=== PATIENT | male | born 1940 | race Caucasian/White ===

== ENCOUNTER 2020-08-02 15:48 | Inpatient (IN) | payer MEDICARE, OTHER ==
[~2020-08-02] VITALS: Ht 177.8 cm; Wt 71.3 kg
[2020-08-02] MEDS ORDERED: SODIUM CHLORIDE 0.9% 1,000 ML IV ONE (16:30)
[2020-08-02] MEDS ORDERED: levoFLOXacin 500MG 100 ML IV ONE (16:30)
[2020-08-02] MEDS ORDERED: ACETAMINOPHEN 500 MG TAB PO ONE ×2 (16:30→20:00)
[2020-08-02 16:55] LABS: Basophils # (auto) 0.1 10 ^3/uL (0-0.2); Basophils % (auto) 0.7 % (0.0-2.0); Eosinophils # (auto) 0.2 10 ^3/uL (0-0.8); Eosinophils % (auto) 1.1 % (0.0-7.0); Hematocrit 46.6 % (41.0-53.0); Hemoglobin 15.6 g/dL (13.5-17.5); Lymphocytes % (auto) 7.5 % (10.0-50.0); Mean Corpuscular Hemoglobin 31.6 pg (28.0-32.0); Mean Corpuscular Hgb Conc. 33.6 g/dL (32.0-36.0); Mean Corpuscular Volume 93.9 fL (80.0-100.0); Monocytes # (auto) 0.5 10 ^3/uL (0-1.3); Neutrophils # (auto) 11.6 10 ^3/uL (1.6-8.6); Neutrophils % (auto) 86.7 % (37.0-80.0); Platelet Count (auto) 203 10^3/uL (140-450); Red Blood Cells 4.96 10^6/uL (4.5-5.90); Red Cell Distribution Width 13.2 % (11.8-14.3); White Blood Cell 13.4 10^3/uL (4.4-10.8)
[2020-08-02 17:11] LABS: Alanine Aminotransferase 40 U/L (16-61); Albumin 3.6 g/dL (3.4-5.0); Anion Gap 7 (5-15); Aspartate Aminotransferase 26 U/L (15-37); BUN/Creatinine Ratio 18.7; Blood Urea Nitrogen 20 mg/dL (7-18); Carbon Dioxide 26 mmol/L (21-32); Chloride 110 mmol/L (98-107); GFR African American 86 mL/min; GFR Non-African American 71 mL/min; Glucose 143 mg/dL (74-106); Potassium 4.2 mmol/L (3.5-5.1); Sodium 143 mmol/L (136-145)
[2020-08-02 17:15] LABS: Alkaline Phosphatase 68 U/L (45-117); Bilirubin, Total 0.7 mg/dL (0.2-1.0); Total Protein 7.5 g/dL (6.4-8.2)
[2020-08-02 17:16] LABS: Lactic Acid w/Reflex 2.8 mmol/L (0.4-2.0)
[2020-08-02 17:23] LABS: INR 1.03 (0.9-1.15); Partial Thromboplastin Time 23.2 sec (23.0-31.2)
[2020-08-02] MEDS ORDERED: LIDOCAINE 2% JELLY 11ml (GLYDO) ONE (18:20)
[2020-08-02] MEDS ORDERED: LIDOCAINE 2% JELLY 11ml (GLYDO) UR ONE (18:30)
[2020-08-02] MEDS ORDERED: IBUPROFEN 600 MG TAB PO ONE (18:30)
[2020-08-02] MEDS ORDERED: SODIUM CHLORIDE 0.9% 500 ML IV ONE (20:00)
[2020-08-02 22:22] LABS: Urine Bacteria NONE SEEN /hpf (None Seen); Urine Blood 3+ /uL (Negative); Urine Mucus FEW (None Seen); Urine Specific Gravity 1.033 (1.001-1.035); Urine WBC 10 /hpf (0 - 3)
[2020-08-02] MEDS ORDERED: NITROGLYCERIN 0.4 MG SL TAB SL PRN (22:45)
[2020-08-02] MEDS ORDERED: ACETAMINOPHEN 325 MG TAB PO PRN (22:45)
[2020-08-02] MEDS ORDERED: MORPHINE SULF INJ 2 MG/ML SYRINGE 1ML IV PRN (22:45)
[2020-08-02] MEDS ORDERED: ONDANSETRON HCL 4 MG/2 ML VIAL IV PRN (22:45)
[2020-08-02] MEDS ORDERED: VANCOMYCIN PER PHARMACY 0 MG IV SCH (22:45)
[2020-08-02] MEDS: SODIUM CHLORIDE 0.9% 1,000 ML IV SCH (22:55)
[2020-08-02] MEDS ORDERED: VANCOMYCIN 1GM/250ML 250 ML IV ONE (23:00)
[2020-08-02 23:43] LABS: Lactic Acid w/Reflex 4.4 mmol/L (0.4-2.0)
[2020-08-03] VITALS (8 sets, daily range): BP systolic 103–145; BP diastolic 55–79
[2020-08-03] MEDS ORDERED: SENN1TAB14 PO (02:53)
[2020-08-03] MEDS ORDERED: IBUP400T22 PO (02:53)
[2020-08-03] MEDS ORDERED: SERT50TA19 PO (02:53)
[2020-08-03] MEDS ORDERED: TRAM50TA2 PO (02:53)
[2020-08-03] MEDS ORDERED: GABA300C10 PO (02:53)
[2020-08-03 07:07] LABS: Basophils # (auto) 0.1 10 ^3/uL (0-0.2); Basophils % (auto) 0.5 % (0.0-2.0); Eosinophils # (auto) 0.1 10 ^3/uL (0-0.8); Eosinophils % (auto) 0.9 % (0.0-7.0); Hematocrit 40.1 % (41.0-53.0); Lymphocytes # (auto) 2.1 10 ^3/uL (0.4-5.4); Mean Corpuscular Hemoglobin 31.2 pg (28.0-32.0); Mean Corpuscular Hgb Conc. 32.5 g/dL (32.0-36.0); Neutrophils # (auto) 12.7 10 ^3/uL (1.6-8.6); Neutrophils % (auto) 79.6 % (37.0-80.0); Nucleated Red Blood Cells % 0.1 %; Platelet Count (auto) 185 10^3/uL (140-450); Red Blood Cells 4.18 10^6/uL (4.5-5.90); Red Cell Distribution Width 13.7 % (11.8-14.3)
[2020-08-03 07:09] LABS: Calcium 8.2 mg/dL (8.5-10.1); Potassium 4.3 mmol/L (3.5-5.1)
[2020-08-03 07:14] LABS: Albumin 2.6 g/dL (3.4-5.0); BUN/Creatinine Ratio 22.4; Total Protein 6.2 g/dL (6.4-8.2)
[2020-08-03 07:17] LABS: Lactic Acid w/Reflex 3.4 mmol/L (0.4-2.0)
[2020-08-03] MEDS: levoFLOXacin 500MG 100 ML IV SCH (09:29)
[2020-08-03] MEDS: MULTIPLE VITAMIN TAB PO SCH (09:30)
[2020-08-03] MEDS: FAMOTIDINE (10MG/ML) 2ML VL IV SCH ×2 (09:30→21:43)
[2020-08-03] MEDS: ZINC SULFATE 220mg CAP or TAB PO SCH (09:30)
[2020-08-03] MEDS: ENOXAPARIN SOD 40 MG/0.4 ML SYRINGE SC SCH (09:30)
[2020-08-03] MEDS: HYDROcodone-ACET 5/325MG TAB PO PRN ×3 (09:41→19:22)
[2020-08-03] MEDS: VANCOMYCIN 1GM/250ML 250 ML IV SCH (11:14)
[2020-08-03] MEDS: ASCORBIC ACID 500 MG TAB PO SCH ×2 (11:27→21:43)
[2020-08-03] MEDS: SODIUM CHLORIDE 0.9% 1,000 ML IV SCH (15:25)
[2020-08-03] MEDS: PHENAZOPYRIDINE HCL 100 MG TAB PO SCH (21:43)
[2020-08-04] MEDS: HYDROcodone-ACET 5/325MG TAB PO PRN (00:11)
[2020-08-04] MEDS: VANCOMYCIN 1GM/250ML 250 ML IV SCH ×2 (00:45→14:49)
[2020-08-04 05:00] VITALS: BP 114/61
[2020-08-04 08:17] LABS: Basophils # (auto) 0.1 10 ^3/uL (0-0.2); Basophils % (auto) 0.6 % (0.0-2.0); Eosinophils # (auto) 0.2 10 ^3/uL (0-0.8); Eosinophils % (auto) 2.1 % (0.0-7.0); Hematocrit 39.4 % (41.0-53.0); Hemoglobin 12.9 g/dL (13.5-17.5); Lymphocytes # (auto) 1.7 10 ^3/uL (0.4-5.4); Lymphocytes % (auto) 14.7 % (10.0-50.0); Mean Corpuscular Hemoglobin 31.2 pg (28.0-32.0); Mean Corpuscular Hgb Conc. 32.7 g/dL (32.0-36.0); Mean Corpuscular Volume 95.2 fL (80.0-100.0); Monocytes # (auto) 0.9 10 ^3/uL (0-1.3); Monocytes % (auto) 7.5 % (0.0-12.0); Neutrophils # (auto) 8.8 10 ^3/uL (1.6-8.6); Neutrophils % (auto) 75.1 % (37.0-80.0); Nucleated Red Blood Cells % 0.1 %; Platelet Count (auto) 173 10^3/uL (140-450); Red Blood Cells 4.14 10^6/uL (4.5-5.90); Red Cell Distribution Width 13.7 % (11.8-14.3); White Blood Cell 11.7 10^3/uL (4.4-10.8)
[2020-08-04 08:18] LABS: Lactic Acid w/Reflex 3.4 mmol/L (0.4-2.0)
[2020-08-04 08:18] LABS: BUN/Creatinine Ratio 23.4; Calcium 8.7 mg/dL (8.5-10.1); Potassium 4.6 mmol/L (3.5-5.1)
[2020-08-04 08:29] VITALS: BP 125/72
[2020-08-04] MEDS: PHENAZOPYRIDINE HCL 100 MG TAB PO SCH ×3 (09:27→17:27)
[2020-08-04] MEDS: levoFLOXacin 500MG 100 ML IV SCH (09:28)
[2020-08-04] MEDS: ZINC SULFATE 220mg CAP or TAB PO SCH (09:28)
[2020-08-04] MEDS: FAMOTIDINE (10MG/ML) 2ML VL IV SCH ×2 (09:28→21:40)
[2020-08-04] MEDS: ENOXAPARIN SOD 40 MG/0.4 ML SYRINGE SC SCH (09:29)
[2020-08-04] MEDS: ASCORBIC ACID 500 MG TAB PO SCH ×2 (09:29→21:40)
[2020-08-04] MEDS: MULTIPLE VITAMIN TAB PO SCH (09:29)
[2020-08-04] MEDS ORDERED: IOHEXOL 300 MG/ML 100ML BOTTLE IJ ONE (11:25)
[2020-08-04 12:58] VITALS: BP 116/63
[2020-08-04] MEDS: SODIUM CHLORIDE 0.9% 1,000 ML IV SCH ×2 (13:16→21:41)
[2020-08-04 17:05] VITALS: BP 140/79
[2020-08-04 20:00] VITALS: BP 135/69
[2020-08-04 22:00] VITALS: BP 135/69
[2020-08-05 05:00] VITALS: BP 158/79
[2020-08-05 08:37] LABS: Basophils # (auto) 0.1 10 ^3/uL (0-0.2); Basophils % (auto) 0.9 % (0.0-2.0); Eosinophils # (auto) 0.3 10 ^3/uL (0-0.8); Eosinophils % (auto) 3.6 % (0.0-7.0); Hematocrit 38.7 % (41.0-53.0); Lymphocytes # (auto) 1.6 10 ^3/uL (0.4-5.4); Lymphocytes % (auto) 19.2 % (10.0-50.0); Mean Corpuscular Hemoglobin 31.5 pg (28.0-32.0); Mean Corpuscular Hgb Conc. 33.7 g/dL (32.0-36.0); Mean Corpuscular Volume 93.7 fL (80.0-100.0); Monocytes # (auto) 0.5 10 ^3/uL (0-1.3); Monocytes % (auto) 6.5 % (0.0-12.0); Neutrophils # (auto) 5.8 10 ^3/uL (1.6-8.6); Neutrophils % (auto) 69.8 % (37.0-80.0); Nucleated Red Blood Cells % 0.1 %; Platelet Count (auto) 211 10^3/uL (140-450); Red Blood Cells 4.13 10^6/uL (4.5-5.90); Red Cell Distribution Width 13.4 % (11.8-14.3); White Blood Cell 8.4 10^3/uL (4.4-10.8)
[2020-08-05] MEDS: PHENAZOPYRIDINE HCL 100 MG TAB PO SCH ×3 (08:41→17:41)
[2020-08-05 08:50] LABS: BUN/Creatinine Ratio 20.6; Calcium 8.5 mg/dL (8.5-10.1); Potassium 3.5 mmol/L (3.5-5.1)
[2020-08-05 09:00] VITALS: BP 154/71
[2020-08-05] MEDS ORDERED: VANCOMYCIN 1GM/250ML 250 ML IV SCH ×2 (09:00→12:00)
[2020-08-05] MEDS: ASCORBIC ACID 500 MG TAB PO SCH ×2 (09:08→21:52)
[2020-08-05] MEDS: ZINC SULFATE 220mg CAP or TAB PO SCH (09:08)
[2020-08-05] MEDS: MULTIPLE VITAMIN TAB PO SCH (09:08)
[2020-08-05] MEDS: FAMOTIDINE (10MG/ML) 2ML VL IV SCH ×2 (09:08→21:52)
[2020-08-05] MEDS: levoFLOXacin 500MG 100 ML IV SCH (09:08)
[2020-08-05] MEDS: ENOXAPARIN SOD 40 MG/0.4 ML SYRINGE SC SCH (09:09)
[2020-08-05] MEDS: HYDROcodone-ACET 5/325MG TAB PO PRN ×2 (09:09→20:17)
[2020-08-05] MEDS ORDERED: PIPERACILLIN-TAZOB 3.375GM 100 ML IV ONE (12:00)
[2020-08-05] MEDS ORDERED: CLINDAMYCIN 600MG IV 50 ML IV ONE (12:15)
[2020-08-05 13:00] VITALS: BP 121/67
[2020-08-05] MEDS ORDERED: PIPERACILLIN-TAZOB 3.375GM 100 ML IV SCH (14:00)
[2020-08-05 17:00] VITALS: BP 122/73
[2020-08-05] MEDS: MORPHINE SULF INJ 2 MG/ML SYRINGE 1ML IV PRN ×2 (17:25→21:52)
[2020-08-05] MEDS: SODIUM CHLORIDE 0.9% 1,000 ML IV SCH (17:26)
[2020-08-05] MEDS: CLINDAMYCIN 600MG IV 50 ML IV SCH (21:53)
[2020-08-05 22:00] VITALS: BP 138/88
[2020-08-06] MEDS: HYDROcodone-ACET 5/325MG TAB PO PRN (00:30)
[2020-08-06 05:00] VITALS: BP 127/76
[2020-08-06] MEDS: CLINDAMYCIN 600MG IV 50 ML IV SCH ×2 (05:23→13:40)
[2020-08-06 06:26] LABS: Basophils # (auto) 0.1 10 ^3/uL (0-0.2); Basophils % (auto) 0.9 % (0.0-2.0); Eosinophils # (auto) 0.5 10 ^3/uL (0-0.8); Eosinophils % (auto) 7.7 % (0.0-7.0); Hematocrit 38.5 % (41.0-53.0); Hemoglobin 13.2 g/dL (13.5-17.5); Lymphocytes # (auto) 1.6 10 ^3/uL (0.4-5.4); Lymphocytes % (auto) 23.8 % (10.0-50.0); Mean Corpuscular Hemoglobin 32.3 pg (28.0-32.0); Mean Corpuscular Hgb Conc. 34.2 g/dL (32.0-36.0); Mean Corpuscular Volume 94.3 fL (80.0-100.0); Monocytes # (auto) 0.6 10 ^3/uL (0-1.3); Monocytes % (auto) 9.2 % (0.0-12.0); Neutrophils # (auto) 3.9 10 ^3/uL (1.6-8.6); Neutrophils % (auto) 58.4 % (37.0-80.0); Nucleated Red Blood Cells % 0.1 %; Platelet Count (auto) 210 10^3/uL (140-450); Red Blood Cells 4.08 10^6/uL (4.5-5.90); Red Cell Distribution Width 13.5 % (11.8-14.3); White Blood Cell 6.7 10^3/uL (4.4-10.8)
[2020-08-06 06:45] LABS: BUN/Creatinine Ratio 16.3; Calcium 8.1 mg/dL (8.5-10.1); Potassium 3.6 mmol/L (3.5-5.1)
[2020-08-06] MEDS: MORPHINE SULF INJ 2 MG/ML SYRINGE 1ML IV PRN (08:19)
[2020-08-06] MEDS: FAMOTIDINE (10MG/ML) 2ML VL IV SCH (08:20)
[2020-08-06] MEDS: ENOXAPARIN SOD 40 MG/0.4 ML SYRINGE SC SCH (08:20)
[2020-08-06] MEDS: ZINC SULFATE 220mg CAP or TAB PO SCH (08:20)
[2020-08-06] MEDS: ASCORBIC ACID 500 MG TAB PO SCH (08:20)
[2020-08-06] MEDS: MULTIPLE VITAMIN TAB PO SCH (08:20)
[2020-08-06 09:00] VITALS: BP 174/92
[2020-08-06] MEDS: SODIUM CHLORIDE 0.9% 1,000 ML IV SCH (10:05)
[2020-08-06] MEDS ORDERED: CLIN300C8 PO (10:45)
== END 2020-08-06 14:25 | disposition hospice, home (50) | DRG 871 ==
LOC: EDBD 15:48 → ER 15:48 → TELE 22:46 → TELE-EAST 23:42
PROVIDERS: ADMIT Nurse Practitioner Family; ATTEND Internal Medicine Pulmonary Disease
DX: A41.9 Sepsis, unspecified organism (principal); J96.01 Acute respiratory failure with hypoxia; J69.0 Pneumonitis due to inhalation of food and vomit; G93.41 Metabolic encephalopathy; N39.0 Urinary tract infection, site not specified; J98.11 Atelectasis; Z20.822 Contact with and (suspected) exposure to COVID-19; R65.20 Severe sepsis without septic shock; F03.90 Unspecified dementia, unspecified severity, without behavioral disturbance, psychotic disturbance, mood disturbance, and anxiety; H91.90 Unspecified hearing loss, unspecified ear; I67.2 Cerebral atherosclerosis; I70.0 Atherosclerosis of aorta; Z88.0 Allergy status to penicillin; Z79.899 Other long term (current) drug therapy; Z79.891 Long term (current) use of opiate analgesic; Z79.01 Long term (current) use of anticoagulants; Z86.73 Personal history of transient ischemic attack (TIA), and cerebral infarction without residual deficits
CPT/HCPCS: 36415; 70450; 71045; 71260; 74177; 76604; 80048; 80053; 80202; 81001; 83036; 83605; 83880; 84484; 85025; 85379; 85610; 85730; 87040; 87086; 87426; 87493; 93005; 96365; 96367; G0378; J1956; J2405; J3490